=== PATIENT | female | born 1940 | race Caucasian/White ===

== ENCOUNTER → 2018-09-07 14:40 | Emergency (ER) | payer MEDICARE, BC ==
[~2018-09-07 14:40] MED LIST: Cefepime 2 GM in Dextrose(*) 2 GM/50 ML BAG IV ONE; Iodixanol* (CONTRAST) 320 MG/ML 100 ML SDV IV ONE; Morphine 4 MG/ML VIAL (1 ml) 4 MG/ML VIAL IV ONE; NS 0.9% 1000 ML** 1,000 ML IV.FLUID IV ONE; Ondansetron INJ* 2 MG/ML VIAL IV ONE
[2018-09-07 15:17] LABS: ABS Lymphocytes 0.6 10^3/ul (1.0-4.8); ABS Monocytes 0.3 10^3/ul (0-0.8); ABS Neutrophils 7.9 10^3/ul (1.5-7.7); Hematocrit 34 % (35-47); Hemoglobin 11.9 g/dL (12.0-16.0); Lymphocyte % 6.3 %; Mean Corpuscular HGB Conc 35 g/dL (31-36); Mean Corpuscular Hemoglobin 34 pg (27-31); Mean Corpuscular Volume 97 fL (80-97); Mean Platelet Volume 9.3 fL (7.4-10.4); Platelet Count 189 10^3/uL (150-450); Red Cell Distribution Width 13 % (10-15); White Blood Count 8.8 10^3/uL (3.5-10.8)
[2018-09-07 15:53] LABS: Activated Partial Thrombo Time 37.7 seconds (26.0-38.0); Albumin 3.9 g/dL (3.2-5.2); Albumin/Globulin Ratio 1.2 (1-3); BUN/Creatinine Ratio 15.7 (8-20); C Reactive Protein 1.03 mg/L (<8.01); Calcium 9.4 mg/dL (8.6-10.3); EGFR African American 44.1 (>60); EGFR Non-African American 36.5 (>60); Globulin 3.2 g/dL (2-4); INR 1.38 (0.82-1.09); Potassium 3.7 mmol/L (3.5-5.0); Total Bilirubin 0.6 mg/dL (0.2-1.0); Total Protein 7.1 g/dL (6.4-8.9)
--- NOTE | 2018-09-07 16:00 | ED ---
Abdominal Pain/Female - HPI Summary HPI Summary: The patient is a 78 y/o F arriving by ambulance to [facility] accompanied by daughter with a chief complaint of sudden onset abd pain this morning. She reports that she woke up with cramping across the abd that developed into a sharp, burning LUQ pain and is now constant after having a BM. She additionally c/o nausea without vomiting, dizziness, and lightheadedness. She denies any blood with stool, melena, fever, chills, erythema of eyes, sore throat, CP, SOB, cough, dysuria, hematuria, myalgia, edema, and rash. The nausea is worsened with standing up. Her pain is currently rated 5/10 in severity. No hx of kidney stones. PMHx: hernia, osteoarthritis. PCP is Dr. Suresh. - History of Current Complaint Chief Complaint: EDAbdPain Stated Complaint: ABDOMINAL/FLANK PAIN PER EMS Time Seen by Provider: 09/07/18 14:56 Hx Obtained From: Patient Onset/Duration: Sudden Onset, Lasting Hours - this morning, Still Present Timing: Hours Severity Initially: Mild Severity Currently: Moderate Pain Intensity: 5 Pain Scale Used: 0-10 Numeric Location: Discrete At: LUQ Radiates: No Character: Burning, Other: - sharp Aggravating Factor(s): Other: - standing Alleviating Factor(s): Position - sitting Associated Signs and Symptoms: Positive: Dizzy, Nausea, Other: - lightheadedness. Negative: Fever, Cough, Chest Pain, Blood in Stool - or melena , Urinary Symptoms - including hematuria or dysuria, Vomiting Allergies/Adverse Reactions: Allergies Allergy/AdvReac Type Severity Reaction Status Date / Time acetaminophen [From Vicodin] Allergy Unknown Verified 09/07/18 14:57 Reaction Details amoxicillin Allergy Unknown Verified 09/07/18 14:57 Reaction Details celecoxib [From Celebrex] Allergy Unknown Verified 09/07/18 14:57 Reaction Details codeine Allergy Unknown Verified 09/07/18 14:57 Reaction Details hydrocodone Allergy Unknown Verified 09/07/18 14:57 Reaction Details levofloxacin [From Levaquin] Allergy Unknown Verified 09/07/18 14:57 Reaction Details pantoprazole [From Protonix] Allergy Unknown Verified 09/07/18 14:57 Reaction Details Penicillins Allergy Unknown Verified 09/07/18 14:56 Reaction Details tramadol Allergy Unknown Verified 09/07/18 14:57 Reaction Details Home Medications: Home Medications Amiodarone HCl 200 mg PO DAILY 09/07/18 [History Confirmed 09/07/18] Apixaban* [Eliquis*] 5 mg PO BID 09/07/18 [History Confirmed 09/07/18] Aspirin [Sia Aspirin EC Low Dose 81 MG] 81 mg PO Q48HR 09/07/18 [History Confirmed 09/07/18] Atorvastatin* [Lipitor*] 10 mg PO DAILY 09/07/18 [History Confirmed 09/07/18] Lisinopril TAB* [Prinivil TAB*] 5 mg PO DAILY 09/07/18 [History Confirmed ] PMH/Surg Hx/FS Hx/Imm Hx Endocrine/Hematology History: Denies: Hx Diabetes Infectious Disease History: No Infectious Disease History: Denies: Traveled Outside the [place] in Last 30 Days - Social History Alcohol Use: None Substance Use Type: Reports: None Smoking Status (MU): Never Smoked Tobacco Review of Systems Negative: Fever, Chills Negative: Erythema Negative: Sore Throat Negative: Chest Pain Negative: Shortness Of Breath, Cough Positive: Abdominal Pain - cramping across but now localized at LUQ, Nausea, Other - NEGATIVE: melena, blood in stool. Negative: Vomiting, Diarrhea Negative: dysuria, hematuria Negative: Myalgia, Edema Negative: Rash Neurological: Other - dizziness, lightheadedness All Other Systems Reviewed And Are Negative: Yes Physical Exam - Summary Physical Exam Summary: Constitutional: Well-developed, Well-nourished, Alert. (-) Distressed Skin: Warm, Dry HENT: Normocephalic; Atraumatic Eyes: Conjunctiva normal Neck: Musculoskeletal ROM normal neck. (-) JVD, (-) Stridor, (-) Tracheal deviation Cardio: Rhythm regular, rate normal, Heart sounds normal; Intact distal pulses; The pedal pulses are 2+ and symmetric. Radial pulses are 2+ and symmetric. (-) Murmur Pulmonary/Chest wall: Effort normal. (-) Respiratory distress, (-) Wheezes, (-) Rales Abd: Soft, (+) epigastric and exquisite LUQ tenderness, (-) Distension, (-) Guarding, (-) Rebound Musculoskeletal: (-) Edema Lymph: (-) Cervical adenopathy Neuro: Alert, Oriented x3 Psych: Mood and affect Normal Triage Information Reviewed: Yes Vital Signs On Initial Exam: Initial Vitals Pulse Pulse Ox 60 99 09/07/18 14:44 09/07/18 14:44 Vital Signs Reviewed: Yes Diagnostics - Vital Signs Vital Signs Temp Pulse Resp BP Pulse Ox 09/07/18 15:21 61 183/65 99 09/07/18 15:01 60 100 09/07/18 14:54 99.3 F 59 17 186/78 100 09/07/18 14:51 59 99 09/07/18 14:44 60 99 - Laboratory Lab Results: Lab Results 09/07/18 09/07/18 09/07/18 Range/Units 15:09 15:09 15:09 WBC 8.8 (3.5-10.8) 10^3/uL RBC 3.50 L (3.70-4.87) 10^6 /uL Hgb 11.9 L (12.0-16.0) g/dL Hct 34 L (35-47) % MCV 97 (80-97) fL MCH 34 H (27-31) pg MCHC 35 (31-36) g/dL RDW 13 (10-15) % Plt Count 189 (150-450) 10^3/uL MPV 9.3 (7.4-10.4) fL Neut % (Auto) 89.7 % Lymph % (Auto) 6.3 % [place] % (Auto) 3.5 % Eos % (Auto) 0.0 % Baso % (Auto) 0.5 % Absolute Neuts (auto) 7.9 H (1.5-7.7) 10^3/ul Absolute Lymphs (auto) 0.6 L (1.0-4.8) 10^3/ul Absolute Monos (auto) 0.3 (0-0.8) 10^3/ul Absolute Eos (auto) 0.0 (0-0.6) 10^3/ul Absolute Basos (auto) 0.0 (0-0.2) 10^3/ul Absolute Nucleated RBC 0.0 10^3/ul Nucleated RBC % 0.0 INR (Anticoag Therapy) (0.82-1.09) APTT (26.0-38.0) seconds Sodium 139 (135-145) mmol/L Potassium 3.7 (3.5-5.0) mmol/L Chloride 106 (101-111) mmol/L Carbon Dioxide 25 (22-32) mmol/L Anion Gap 8 (2-11) mmol/L BUN 22 (6-24) mg/dL Creatinine 1.40 H (0.51-0.95) mg/dL Est GFR ( Amer) 44.1 (>60) Est GFR (Non-Af Amer) 36.5 (>60) BUN/Creatinine Ratio 15.7 (8-20) Glucose 112 H (70-100) mg/dL Lactic Acid 1.1 (0.5-2.0) mmol/L Calcium 9.4 (8.6-10.3) mg/dL Total Bilirubin 0.60 (0.2-1.0) mg/dL AST 22 (13-39) U/L ALT 14 (7-52) U/L Alkaline Phosphatase 85 (34-104) U/L C-Reactive Protein 1.03 (<8.01) mg/L Total Protein 7.1 (6.4-8.9) g/dL Albumin 3.9 (3.2-5.2) g/dL Globulin 3.2 (2-4) g/dL Albumin/Globulin Ratio 1.2 (1-3) Lipase 13 (11.0-82.0) U/L 09/07/18 Range/Units 15:09 WBC (3.5-10.8) 10^3/uL RBC (3.70-4.87) 10^6 /uL Hgb (12.0-16.0) g/dL Hct (35-47) % MCV (80-97) fL MCH (27-31) pg MCHC (31-36) g/dL RDW (10-15) % Plt Count (150-450) 10^3/uL MPV (7.4-10.4) fL Neut % (Auto) % Lymph % (Auto) % [place] % (Auto) % Eos % (Auto) % Baso % (Auto) % Absolute Neuts (auto) (1.5-7.7) 10^3/ul Absolute Lymphs (auto) (1.0-4.8) 10^3/ul Absolute Monos (auto) (0-0.8) 10^3/ul Absolute Eos (auto) (0-0.6) 10^3/ul Absolute Basos (auto) (0-0.2) 10^3/ul Absolute Nucleated RBC 10^3/ul Nucleated RBC % INR (Anticoag Therapy) 1.38 H (0.82-1.09) APTT 37.7 (26.0-38.0) seconds Sodium (135-145) mmol/L Potassium (3.5-5.0) mmol/L Chloride (101-111) mmol/L Carbon Dioxide (22-32) mmol/L Anion Gap (2-11) mmol/L BUN (6-24) mg/dL Creatinine (0.51-0.95) mg/dL Est GFR ( Amer) (>60) Est GFR (Non-Af Amer) (>60) BUN/Creatinine Ratio (8-20) Glucose (70-100) mg/dL Lactic Acid (0.5-2.0) mmol/L Calcium (8.6-10.3) mg/dL Total Bilirubin (0.2-1.0) mg/dL AST (13-39) U/L ALT (7-52) U/L Alkaline Phosphatase (34-104) U/L C-Reactive Protein (<8.01) mg/L Total Protein (6.4-8.9) g/dL Albumin (3.2-5.2) g/dL Globulin (2-4) g/dL Albumin/Globulin Ratio (1-3) Lipase (11.0-82.0) U/L Result Diagrams: 09/07/18 15:09 09/07/18 15:09 Lab Statement: Any lab studies that have been ordered have been reviewed, and results considered in the medical decision making process. - CT Abd/Pel CT CT Interpretation Completed By: Radiologist Summary of CT Findings: Impression: 1. Severe left-sided hydronephrosis with delayed excretion on the left kidney. There is no appreciable nephrolithiasis. There is ascites centered on the left kidney suggestive of forniceal rupture. 2. Atherosclerosis. 3. Extensive diverticulosis. ED physician has reviewed this radiology report. - EKG 1512 Cardiac Rate: Bradycardia - 58 bpm EKG Rhythm: Sinus Bradycardia Summary of EKG Findings: Sinus bradycardia at 58 bpm. No STEMI. Re-Evaluation - Re-Evaluation First Eval Re-Evaluation Time: 17:00 Comment: We discussed results and need for transfer. Abdominal Pain Fem Course/Dx - Course Course Of Treatment: Patient is a 78 y/o F arriving by ambulance to [facility] accompanied by daughter with a chief complaint of sudden onset cramping across the abd that developed into a sharp, burning LUQ pain that is now constant after having a BM. Additionally c/o nausea without vomiting, dizziness, and lightheadedness. No hx of renal calculi. Upon physical exam, the patient exhibits epigastric and exquisite LUQ tenderness. In the ED course, the patient was administered Zofran and Morphine 4mg IV for pain, and Cefapime. Blood work reveals RBCs of 3.50, Hgb of 11.9, Hct of 34, absolute neuts of 7.9, absolute lymphs of 0.6, INR of 1.38, creatinine of 1.40, and glucose of 112. UA reveals trace leukocyte esterase, 1+ WBCs, presence of squamous epithelial cells, and ascorbic acid. EKG at 1512 reveals sinus bradycardia at 58 bpm without any acute changes. Abdominopelvic CT with contrast Impression: 1. Severe left-sided hydronephrosis with delayed excretion on the left kidney. There is no appreciable nephrolithiasis. There is ascites centered on the left kidney suggestive of forniceal rupture. 2. Atherosclerosis. 3. Extensive diverticulosis. Since the urology and nephrology consultation that the patient needs is not available at [facility], the patient needs to be transferred. I spoke with [facility], and they do not have any beds available. The patient was accepted to [facility] to Dr. Fried, [facility] ED. Patient is agreeable with plan. She is diagnosed with renal rupture. 60 minutes CCT. No stone visualized ; complication of pyelo? Reqiures urology consult - Diagnoses Provider Diagnoses: Renal rupture - Provider Notifications Discussed Care Of Patient With: ROGER FRIED - [facility] ED Time Discussed With Above Provider: 19:45 Instructed by Provider To: Transfer - Dr. Fried accepts the patient for transfer. Reason For Transfer: Specialty or service not available at [facility]., Patient not appropriate for [facility]. - Critical Care Time Critical Care Time: 30-74 min - 60 minutes Discharge - Sign-Out/Discharge Documenting (check all that apply): Patient Departure - Patient is accepted for transfer to [facility] by Dr. Fried. Patient Received Moderate/Deep Sedation with Procedure: No - Discharge Plan Condition: Stable Disposition: TRANS HIGHER LVL OF CARE FAC Referrals: Davina Suresh MD [Primary Care Provider] - - Billing Disposition and Condition Condition: STABLE Disposition: Trans Higher Lvl of Care Fac - Attestation Statements Document Initiated by Scribe: Yes Documenting Scribe: Lucila Kennedy Provider For Whom Adonis is Documenting (Include Credential): Dr. Luciano Leonard MD Scribe Attestation: Lucila Belcher scribed for Dr. Luciano Leonard MD on 09/07/18 at 2047. Scribe Documentation Reviewed: Yes Provider Attestation: The documentation as recorded by the Lucila mcgraw accurately reflects the service I personally performed and the decisions made by me, Dr. Luciano Leonard MD Status of Scribe Document: Viewed
[2018-09-07 16:40] LABS: Urine Appearance Clear; Urine Bacteria Absent (Absent); Urine Bilirubin Negative (Negative); Urine Blood Negative (Negative); Urine Color Yellow; Urine Glucose Negative (Negative); Urine Ketones Negative (Negative); Urine Nitrite Negative (Negative); Urine Protein Negative (Negative); Urine Red Blood Cell Trace(0-2/hpf) (Absent); Urine Specific Gravity 1.016 (1.010-1.030); Urine Squamous Epithelial Cell Present (Absent); Urine Urobilinogen Negative (Negative); Urine White Blood Cell 1+(6-10/hpf) (Absent)
[2018-09-08 01:00] VITALS: BP 111/86
== END | disposition short-term general hospital (02) ==
LOC: ED 14:40
DX: S37.062A Major laceration of left kidney, initial encounter (principal); X58.XXXA Exposure to other specified factors, initial encounter; Y92.9 Unspecified place or not applicable; Z88.1 Allergy status to other antibiotic agents; Z88.5 Allergy status to narcotic agent; Z88.0 Allergy status to penicillin; Z88.8 Allergy status to other drugs, medicaments and biological substances; Z79.82 Long term (current) use of aspirin; Z79.01 Long term (current) use of anticoagulants; Z79.899 Other long term (current) drug therapy; I70.0 Atherosclerosis of aorta; K57.90 Diverticulosis of intestine, part unspecified, without perforation or abscess without bleeding
CPT/HCPCS: 36415; 74177; 80053; 81003; 81015; 83605; 83690; 85025; 85610; 85730; 86140; 87086; 93005; 96361; 96365; 96375; 99284; J0692; J2270; J2405; Q9967

== ENCOUNTER 2018-09-19 10:08 | Emergency (ER) | payer MEDICARE, BC ==
--- NOTE | 2018-09-19 10:30 | ED ---
Adult Trauma - HPI Summary HPI Summary: A 78 y/o female presents to [facility] with a chief complaint of a mechanical fall two times over the past three days. She said that she fell on her left arm three days ago and last night she fell on her right thigh. She claims that she hit her head both times but did not lose consciousness or have any head pain. She reports taking Eliquis. She denies and numbness/weakness/tingling. She says that she was in the ED on 09/07/18 with left flank pain and was sent to [facility] and a urologist, but claims that this is a different pain. She denies any current bowel or urinary symptoms. She also notes that 5 years ago had shoulder replacement shoulder. - History of Current Complaint Chief Complaint: EDFall Stated Complaint: LEFT ARM/HIP PAIN PER NURSE Hx Obtained From: Patient Mechanism of Injury: Fall Loss of Consciousness: no loss of consciousness Onset/Duration: Started Days Ago, Still Present Onset Severity: Moderate Current Severity: Moderate Pain Intensity: 7 Pain Scale Used: 0-10 Numeric Location: Extremities - right thigh, left arm Aggravating Factor(s): Nothing Alleviating Factor(s): Nothing Associated Signs & Symptoms: Positive: Other: - negative: urinary or bowel symptoms. Negative: Fever, Loss of Consciousness - Allergy/Home Medications Allergies/Adverse Reactions: Allergies Allergy/AdvReac Type Severity Reaction Status Date / Time amoxicillin Allergy Unknown Verified 09/07/18 14:57 Reaction Details celecoxib [From Celebrex] Allergy Unknown Verified 09/07/18 14:57 Reaction Details codeine Allergy Unknown Verified 09/07/18 14:57 Reaction Details diltiazem Allergy Rash Verified 09/19/18 10:14 hydrocodone Allergy Unknown Verified 09/07/18 14:57 Reaction Details levofloxacin [From Levaquin] Allergy Unknown Verified 09/07/18 14:57 Reaction Details pantoprazole [From Protonix] Allergy Unknown Verified 09/07/18 14:57 Reaction Details Penicillins Allergy Unknown Verified 09/07/18 14:56 Reaction Details tramadol Allergy Unknown Verified 09/07/18 14:57 Reaction Details PMH/Surg Hx/FS Hx/Imm Hx Endocrine/Hematology History: Denies: Hx Diabetes Infectious Disease History: No Infectious Disease History: Denies: Traveled Outside the [place] in Last 30 Days - Family History Known Family History: Negative: Blood Disorder - Social History Alcohol Use: None Substance Use Type: Reports: None Smoking Status (MU): Never Smoked Tobacco Review of Systems Negative: Fever Negative: Abdominal Pain, Vomiting, Diarrhea, Nausea Positive: no symptoms reported Positive: Myalgia - left arm pain, right thigh pain Negative: Syncope All Other Systems Reviewed And Are Negative: Yes Physical Exam - Summary Physical Exam Summary: Constitutional: Well-developed, Well-nourished, Alert, Cooperative Skin: Warm, Dry HENT: Normocephalic, atraumatic. Eyes: EOM normal, PERRL Neck: Trachea is midline. No stridor; No JVD; No step off; No posterior cervical spine tenderness Cardio: Rhythm regular, rate normal Heart sounds normal; Intact distal pulses; Radial pulses are 2+ and symmetric. Pulmonary/Chest wall: Effort normal; Breath sounds normal; Equal chest rise; No flail segment; No rib tenderness; No sternal tenderness Abd: Soft, Appearance normal. No distension; No tenderness Musculoskeletal: tenderness right lateral thigh w/o deformity. Tenderness left shoulder with pain with ROM of humerus, no elbow/hand/forearm tenderness. No joint swelling; No step off or deformity of the spine Neuro: Alert, Oriented x3, GCS 15. Strength 5/5 all extremities. Psych: Mood and affect Normal Triage Information Reviewed: Yes Vital Signs On Initial Exam: Initial Vitals Temp Pulse Resp BP Pulse Ox 98.6 F 60 14 173/83 99 09/19/18 10:10 09/19/18 10:10 09/19/18 10:10 09/19/18 10:10 09/19/18 10:10 Vital Signs Reviewed: Yes - Brumley Coma Scale Best Eye Response: 4 - Spontaneous Best Motor Response: 6 - Obeys Commands Best Verbal Response: 5 - Oriented Coma Scale Total: 15 Diagnostics - Vital Signs Vital Signs Temp Pulse Resp BP Pulse Ox 09/19/18 10:10 98.6 F 60 14 173/83 99 - Laboratory Result Diagrams: 09/19/18 10:34 09/19/18 10:34 Lab Statement: Any lab studies that have been ordered have been reviewed, and results considered in the medical decision making process. - Radiology Hip/pelvis x-ray Radiology Interpretation Completed By: Radiologist Summary of Radiographic Findings: 1. OSTEOPENIA. 2. OSTEOARTHRITIS. 3. NO RADIOGRAPHIC EVIDENCE FOR HIP FRACTURE. X-RAYS MAY BE NEGATIVE WITH NONDISPLACED. HIP FRACTURE, IF THERE IS PERSISTENT CLINICAL CONCERN, RECOMMEND CONSIDERATION OF MRI. IN. THE SETTING OF CONTRAINDICATION TO MRI OR LIMITATION IN EMERGENT ACCESS TO MRI, CT WOULD. BE SUGGESTED. ED physician has reviewed this imaging report. femur x-ray Radiology Interpretation Completed By: Radiologist Summary of Radiographic Findings: Negative for fracture. ED physician has reviewed this imaging report. CXR Radiology Interpretation Completed By: Radiologist Summary of Radiographic Findings: COPD. ED physician has reviewed this imaging report. humerus x-ray Radiology Interpretation Completed By: Radiologist Summary of Radiographic Findings: Normally located complete glenohumeral joint prosthesis. Negative for stigmata of. component loosening or periprosthetic fracture. No fracture of the humerus evident. Bone density appears decreased throughout. Unremarkable soft tissue contours. ED physician has reviewed this imaging reprot. shoulder x-ray Radiology Interpretation Completed By: Radiologist Summary of Radiographic Findings: Normally located complete glenohumeral joint prosthesis. Negative for stigmata of. component loosening or periprosthetic fracture. No fracture of the humerus evident. Bone density appears decreased throughout. Unremarkable soft tissue contours. ED physician has reviewed this imaging report. - CT Brain CT Interpretation Completed By: Radiologist Summary of CT Findings: 1. NO ACUTE INTRACRANIAL PATHOLOGY. 2. CHRONIC SMALL VESSEL ISCHEMIC CHANGE. 3. 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 ED physician has reviewed this imaging report. Re-Evaluation - Re-Evaluation First Eval Change: Improved - Discussed results including negative x-rays and negative head CT. Patient feels comfortable going home. Adult Trauma Course/Dx - Course Course Of Treatment: 78-year-old female with a history of recent L renal forniceal rupture, on eliquis presents after a ground level fall. - 2 mechanical falls, denies syncopal event that [facility]. Secondary survey with left shoulder tenderness at site of prior surgery, right hip tenderness. Check plain films. Check a CBC and INR. Denies LUQ/L flank pain. - Diagnoses Provider Diagnoses: Shoulder pain, Hip pain, Fall Discharge - Sign-Out/Discharge Documenting (check all that apply): Patient Departure - DC Patient Received Moderate/Deep Sedation with Procedure: No - Discharge Plan Condition: Stable Disposition: HOME Patient Education Materials: Fall Prevention (ED), Shoulder Pain (ED) Referrals: Davina Suresh MD [Primary Care Provider] - Additional Instructions: You were seen in the emergency department for a fall. Your Xrays did not show any acute fractures. At home you can take 500 mg of tylenol for pain every 6-8 hours. If any studies were not completed at the time of discharge you will be called with the relevant results. Please follow up with your primary care doctor in next 2-3 days and return to emergency department for worsening pain, continues falls, headaches, or concerning symptoms. - Billing Disposition and Condition Condition: STABLE Disposition: Home - Attestation Statements Document Initiated by Adonis: Yes Documenting Alirioibe: Castro Enamorado Provider For Whom Adonis is Documenting (Include Credential): Brian Mccarthy MD Scribe Attestation: Castro Belcher, scribed for Brian Mccatrhy MD on 09/19/18 at 1146. Scribe Documentation Reviewed: Yes Provider Attestation: The documentation as recorded by the Castro mcgraw accurately reflects the service I personally performed and the decisions made by Brian teran MD Status of Scribjamal Document: Viewed
[2018-09-19 10:47] LABS: ABS Basophils 0.1 10^3/ul (0-0.2); ABS Lymphocytes 0.7 10^3/ul (1.0-4.8); ABS Monocytes 0.3 10^3/ul (0-0.8); Eosinophil % 0.6 %; Hematocrit 32 % (35-47); Hemoglobin 10.9 g/dL (12.0-16.0); Lymphocyte % 16.2 %; Mean Corpuscular HGB Conc 34 g/dL (31-36); Mean Corpuscular Hemoglobin 33 pg (27-31); Mean Corpuscular Volume 98 fL (80-97); Mean Platelet Volume 8.4 fL (7.4-10.4); Nucleated Red Blood Cells % 0.1; Platelet Count 296 10^3/uL (150-450); Red Cell Distribution Width 13 % (10-15); White Blood Count 4.1 10^3/uL (3.5-10.8)
[2018-09-19 10:54] LABS: INR 1.59 (0.82-1.09)
[2018-09-19 11:00] LABS: Albumin/Globulin Ratio 1.1 (1-3); Calcium 9.6 mg/dL (8.6-10.3); EGFR African American 60.2 (>60); EGFR Non-African American 49.7 (>60); Globulin 3.5 g/dL (2-4); Potassium 3.8 mmol/L (3.5-5.0); Total Bilirubin 0.5 mg/dL (0.2-1.0); Total Protein 7.5 g/dL (6.4-8.9)
[2018-09-19] MEDS ORDERED: Acetaminophen TAB* 325 MG PO ONE (11:34)
[2018-09-19 11:43] VITALS: BP 178/83
== END 2018-09-19 11:44 | disposition home or self-care (01) ==
LOC: ED 10:08
DX: M25.512 Pain in left shoulder (principal); M25.551 Pain in right hip; W19.XXXA Unspecified fall, initial encounter; Y92.9 Unspecified place or not applicable; M85.88 Other specified disorders of bone density and structure, other site; M16.11 Unilateral primary osteoarthritis, right hip; J44.9 Chronic obstructive pulmonary disease, unspecified; Z79.01 Long term (current) use of anticoagulants; Z96.612 Presence of left artificial shoulder joint; Z88.1 Allergy status to other antibiotic agents; Z88.5 Allergy status to narcotic agent; Z88.0 Allergy status to penicillin; Z88.8 Allergy status to other drugs, medicaments and biological substances
CPT/HCPCS: 36415; 70450; 71046; 80053; 85025; 85610; 99282; A9270-GY

== ENCOUNTER 2020-11-16 12:27 | Inpatient (IN) ==
[2020-11-16] MEDS ORDERED: Morphine 4 MG/ML VIAL (1 ml) IV ONE ×2 (13:45→14:51)
[2020-11-16] MEDS ORDERED: Ondansetron 4 mg VIAL 2 MG/ML 2 ml VIAL IV ONE (13:45)
[2020-11-16 13:55] LABS: Hematocrit 34 % (35-47); Hemoglobin 11.5 g/dL (12.0-16.0); Mean Corpuscular HGB Conc 34 g/dL (31-36); Mean Corpuscular Hemoglobin 34 pg (27-31); Mean Corpuscular Volume 97 fL (80-97); Mean Platelet Volume 9.1 fL (7.4-10.4); Platelet Count 189 10^3/uL (150-450); Red Blood Count 3.45 10^6 /uL (3.70-4.87); Red Cell Distribution Width 13 % (10-15)
[2020-11-16] MEDS ORDERED: Lactated Ringers 1000 ml BAG 1,000 ML IV SCH (14:00)
[2020-11-16 14:08] LABS: Troponin I 0.01 ng/mL (<0.03)
[2020-11-16 14:09] LABS: Albumin 3.7 g/dL (3.2-5.2); Albumin/Globulin Ratio 1.1 (1-3); Calcium 9.6 mg/dL (8.6-10.3); Globulin 3.4 g/dL (2-4); Potassium 3.7 mmol/L (3.5-5.0); Total Bilirubin 0.5 mg/dL (0.2-1.0); Total Protein 7.1 g/dL (6.4-8.9)
[2020-11-16 14:44] LABS: ABS Lymphocytes 0.7 10^3/ul (1.0-4.8); ABS Monocytes 0.6 10^3/ul (0-0.8); ABS Neutrophils 10.6 10^3/ul (1.5-7.7); Eosinophil % 0.1 %; Lymphocyte % 5.9 %
[2020-11-16] MEDS ORDERED: Senna TAB 8.6 mg TAB PO PRN ×2 (15:29→17:19)
[2020-11-16] MEDS ORDERED: Famotidine IV 10 MG/ML 2 ml VIAL (20 mg) IV ONE (16:24)
[2020-11-16 16:42] LABS: Rapid COVID-19 Molecular Undetected (Undetected)
[2020-11-16] MEDS ORDERED: Famotidine IV 10 MG/ML 2 ml VIAL (20 mg) ONE (17:05)
[2020-11-16] MEDS ORDERED: ceFAZolin 2 GM in NS PREMIX 2 GM/100 ML BAG IVPB ONE (17:05)
[2020-11-16] MEDS: Lactated Ringers 1000 ml BAG 1,000 ML IV SCH ×2 (17:10→21:58)
[2020-11-16] MEDS ORDERED: Polyethylene Glycol 3350 17 GM PACKET PO PRN (17:19)
[2020-11-16] MEDS ORDERED: Magnesium Hydroxide LIQ 30 ML UDC PO PRN (17:19)
[2020-11-16] MEDS ORDERED: Rocuronium 50 mg VIAL 10 mg/ml 5 ml VIAL (50 mg) ONE (17:38)
[2020-11-16] MEDS ORDERED: fentaNYL 250 mcg/5 ml 50 MCG/ML 5 ml VIAL (250 MCG) ONE (17:38)
[2020-11-16] MEDS ORDERED: Propofol 10 MG/ML 20 ML BTL ONE (17:38)
[2020-11-16] MEDS ORDERED: Midazolam 2 mg/2 ml VIAL 1 mg/ml 2 ml VIAL (2 mg) ONE (17:42)
[2020-11-16] MEDS ORDERED: Lidocaine 2% PF 5 ML VIAL ONE (17:43)
[2020-11-16] MEDS ORDERED: Dexamethasone IV 4 MG/ML VIAL 1 ml VIAL ONE (18:19)
[2020-11-16] MEDS ORDERED: Naloxone 0.4 mg VIAL 0.4 mg/ml 1 ml VIAL IV PRN (19:20)
[2020-11-16] MEDS ORDERED: Acetaminophen IV 1 GM/100ML 100 ML IV ONE (19:20)
[2020-11-16] MEDS ORDERED: Ondansetron 4 mg VIAL 2 MG/ML 2 ml VIAL ONE (19:20)
[2020-11-16] MEDS ORDERED: DiMENhydriNATE IV 50 mg/ml 1 ml VIAL IV PUSH PRN (19:20)
[2020-11-16] MEDS ORDERED: Phenylephrine 40 mcg/mL 10mL (400mcg) SYRINGE ONE (19:22)
[2020-11-16] MEDS ORDERED: fentaNYL 100 mcg/2 ml 50 MCG/ML VIAL ONE ×2 (19:55→20:13)
[2020-11-16] MEDS: fentaNYL 100 mcg/2 ml 50 MCG/ML VIAL IV PRN ×5 (19:55→20:15)
[2020-11-16] MEDS ORDERED: PROPAFENONE 225 MG PO SCH (21:00)
[2020-11-16] MEDS: Magnesium Hydroxide LIQ 30 ML UDC PO SCH (22:03)
[2020-11-16 22:55] LABS: INR 1.16 (0.86-1.15)
[2020-11-17] MEDS: Ondansetron 4 mg VIAL 2 MG/ML 2 ml VIAL IV PRN ×2 (01:34→14:18)
[2020-11-17] MEDS: ceFAZolin 1 GM X 3 DOSES POST-OP Q8H (AddVan) IVPB SCH ×3 (01:34→17:21)
[2020-11-17] MEDS ORDERED: Calcium Carb (TUMS) 500 mg CHEW TAB PO PRN (02:29)
[2020-11-17 05:35] LABS: ABS Lymphocytes 0.5 10^3/ul (1.0-4.8); ABS Monocytes 0.3 10^3/ul (0-0.8); Hematocrit 29 % (35-47); Hemoglobin 10.1 g/dL (12.0-16.0); Lymphocyte % 5.6 %; Mean Corpuscular HGB Conc 35 g/dL (31-36); Mean Corpuscular Hemoglobin 34 pg (27-31); Mean Corpuscular Volume 97 fL (80-97); Mean Platelet Volume 8.9 fL (7.4-10.4); Platelet Count 163 10^3/uL (150-450); Red Blood Count 3.02 10^6 /uL (3.70-4.87); Red Cell Distribution Width 13 % (10-15); White Blood Count 8.8 10^3/uL (3.5-10.8)
[2020-11-17 05:51] LABS: Calcium 8.8 mg/dL (8.6-10.3); Potassium 4.3 mmol/L (3.5-5.0)
[2020-11-17] MEDS ORDERED: CMC:Ketorolac 0.5% OPHTH (NF) 0.5 % 5 ML BTL LEFT EYE SCH (09:00)
[2020-11-17] MEDS ORDERED: Ciprofloxacin 0.3% OPTH.SOL BTL LEFT EYE SCH (09:00)
[2020-11-17] MEDS ORDERED: Magnesium Hydroxide LIQ 30 ML UDC PO SCH (09:00)
[2020-11-17] MEDS ORDERED: NS 0.9% 1000 ml BAG 1,000 ML IV ONE (09:26)
[2020-11-17] MEDS: Calcium/Vitamin D TAB 250/125 TAB PO SCH (09:46)
[2020-11-17] MEDS: Magnesium Hydroxide LIQ 30 ML UDC PO SCH ×2 (09:46→21:22)
[2020-11-17] MEDS: CMCS:Propafenone ER 225 mg CAP (NF) 225 MG CAP.ER PO SCH ×2 (09:47→21:24)
[2020-11-17] MEDS: Multivitamins/Minerals TAB PO SCH (09:47)
[2020-11-17] MEDS: Enoxaparin 40 MG/0.4 ML SYR SUBCUT SCH (11:39)
[2020-11-17] MEDS ORDERED: CMCS:Ketorolac 0.5% OPHTH (NF) 0.5 % 5 ML BTL RIGHT EYE SCH (14:00)
[2020-11-17] MEDS: CMCS:Ketorolac 0.5% OPHTH (NF) 0.5 % 5 ML BTL RIGHT EYE SCH (21:22)
[2020-11-18 06:04] LABS: ABS Lymphocytes 0.8 10^3/ul (1.0-4.8); ABS Monocytes 0.6 10^3/ul (0-0.8); ABS Neutrophils 8.1 10^3/ul (1.5-7.7); Eosinophil % 0.1 %; Hematocrit 26 % (35-47); Hemoglobin 9.1 g/dL (12.0-16.0); Mean Corpuscular HGB Conc 35 g/dL (31-36); Mean Corpuscular Hemoglobin 34 pg (27-31); Mean Corpuscular Volume 97 fL (80-97); Mean Platelet Volume 8.8 fL (7.4-10.4); Platelet Count 152 10^3/uL (150-450); Red Blood Count 2.66 10^6 /uL (3.70-4.87); Red Cell Distribution Width 13 % (10-15); White Blood Count 9.5 10^3/uL (3.5-10.8)
[2020-11-18 06:30] LABS: Calcium 8.5 mg/dL (8.6-10.3); Potassium 4.4 mmol/L (3.5-5.0)
[2020-11-18] MEDS: CMCS:Propafenone ER 225 mg CAP (NF) 225 MG CAP.ER PO SCH ×2 (07:59→21:12)
[2020-11-18] MEDS: CMCS:Ketorolac 0.5% OPHTH (NF) 0.5 % 5 ML BTL RIGHT EYE SCH ×3 (07:59→19:30)
[2020-11-18] MEDS: Calcium/Vitamin D TAB 250/125 TAB PO SCH (08:00)
[2020-11-18] MEDS: Multivitamins/Minerals TAB PO SCH (08:01)
[2020-11-18] MEDS: Magnesium Hydroxide LIQ 30 ML UDC PO SCH (08:09)
[2020-11-18] MEDS: Enoxaparin 40 MG/0.4 ML SYR SUBCUT SCH (12:31)
[2020-11-19 04:57] LABS: Hematocrit 24 % (35-47); Hemoglobin 8.5 g/dL (12.0-16.0); Mean Platelet Volume 8.8 fL (7.4-10.4); Platelet Count 151 10^3/uL (150-450)
[2020-11-19 07:15] VITALS: BP 112/66
[2020-11-19] MEDS: CMCS:Ketorolac 0.5% OPHTH (NF) 0.5 % 5 ML BTL RIGHT EYE SCH (08:33)
[2020-11-19] MEDS: Calcium/Vitamin D TAB 250/125 TAB PO SCH (08:34)
[2020-11-19] MEDS: Multivitamins/Minerals TAB PO SCH (08:34)
[2020-11-19] MEDS: CMCS:Propafenone ER 225 mg CAP (NF) 225 MG CAP.ER PO SCH (08:37)
== END 2020-11-19 09:35 | DRG 481 ==
LOC: ED 12:27 → SUATTDRO 15:25 → SSU 15:25
PROVIDERS: ADMIT Internal Medicine; ATTEND Internal Medicine

== ENCOUNTER 2020-11-19 07:48 | Inpatient (IN) ==
[2020-11-19] MEDS ORDERED: Magnesium Hydroxide LIQ 30 ML UDC PO PRN (13:17)
[2020-11-19 14:19] LABS: ABS Eosinophils 0.1 10^3/ul (0-0.6); ABS Monocytes 0.9 10^3/ul (0-0.8); Hematocrit 26 % (35-47); Lymphocyte % 16.1 %; Mean Corpuscular HGB Conc 34 g/dL (31-36); Mean Corpuscular Hemoglobin 33 pg (27-31); Mean Corpuscular Volume 97 fL (80-97); Mean Platelet Volume 8.8 fL (7.4-10.4); Platelet Count 158 10^3/uL (150-450); Red Blood Count 2.72 10^6 /uL (3.70-4.87); Red Cell Distribution Width 13 % (10-15)
[2020-11-19] MEDS: Ketorolac 0.5% OPHTH (NF) 0.5 % 5 ML BTL RIGHT EYE SCH ×2 (14:37→20:23)
[2020-11-19] MEDS: Enoxaparin 40 MG/0.4 ML SYR SUBCUT SCH (14:37)
[2020-11-19] MEDS: PROPAFENONE 225 MG PO SCH (20:27)
[2020-11-19] MEDS ORDERED: Calcium Carb (TUMS) 500 mg CHEW TAB ONE (21:46)
[2020-11-20 07:25] LABS: Albumin 2.8 g/dL (3.2-5.2); Albumin/Globulin Ratio 1.1 (1-3); Calcium 8.4 mg/dL (8.6-10.3); Globulin 2.6 g/dL (2-4); Potassium 4.1 mmol/L (3.5-5.0); Total Bilirubin 0.7 mg/dL (0.2-1.0); Total Protein 5.4 g/dL (6.4-8.9)
[2020-11-20] MEDS: PROPAFENONE 225 MG PO SCH ×2 (08:23→20:16)
[2020-11-20] MEDS: Calcium/Vitamin D TAB 250/125 TAB PO SCH (08:23)
[2020-11-20] MEDS: Ketorolac 0.5% OPHTH (NF) 0.5 % 5 ML BTL RIGHT EYE SCH ×2 (09:14→13:46)
[2020-11-20] MEDS: Enoxaparin 40 MG/0.4 ML SYR SUBCUT SCH (14:19)
[2020-11-20] MEDS: Calcium Carb (TUMS) 500 mg CHEW TAB PO PRN (21:23)
[2020-11-21] MEDS: Calcium/Vitamin D TAB 250/125 TAB PO SCH (08:08)
[2020-11-21] MEDS: PROPAFENONE 225 MG PO SCH ×2 (08:08→21:38)
[2020-11-21] MEDS: Calcium Carb (TUMS) 500 mg CHEW TAB PO PRN (11:02)
[2020-11-21] MEDS: Enoxaparin 40 MG/0.4 ML SYR SUBCUT SCH (14:18)
[2020-11-22] MEDS: PROPAFENONE 225 MG PO SCH ×2 (07:42→19:54)
[2020-11-22] MEDS: Calcium/Vitamin D TAB 250/125 TAB PO SCH (07:42)
[2020-11-22] MEDS: Enoxaparin 40 MG/0.4 ML SYR SUBCUT SCH (14:05)
[2020-11-23] MEDS: Calcium/Vitamin D TAB 250/125 TAB PO SCH (08:22)
[2020-11-23] MEDS: PROPAFENONE 225 MG PO SCH ×2 (08:22→19:36)
[2020-11-23] MEDS: Enoxaparin 40 MG/0.4 ML SYR SUBCUT SCH (15:12)
[2020-11-23] MEDS: Calcium Carb (TUMS) 500 mg CHEW TAB PO PRN (15:23)
[2020-11-23] MEDS: Senna TAB 8.6 mg TAB PO PRN (19:37)
[2020-11-24] MEDS: Calcium/Vitamin D TAB 250/125 TAB PO SCH (09:09)
[2020-11-24] MEDS: PROPAFENONE 225 MG PO SCH ×2 (09:10→19:31)
[2020-11-24] MEDS: Calcium Carb (TUMS) 500 mg CHEW TAB PO PRN (13:30)
[2020-11-24] MEDS: Enoxaparin 40 MG/0.4 ML SYR SUBCUT SCH (13:30)
[2020-11-25] MEDS: Calcium/Vitamin D TAB 250/125 TAB PO SCH (08:52)
[2020-11-25] MEDS: PROPAFENONE 225 MG PO SCH ×2 (08:52→19:36)
[2020-11-25] MEDS: Enoxaparin 40 MG/0.4 ML SYR SUBCUT SCH (13:03)
[2020-11-26] MEDS: Calcium/Vitamin D TAB 250/125 TAB PO SCH (08:35)
[2020-11-26] MEDS: PROPAFENONE 225 MG PO SCH ×2 (08:36→19:49)
[2020-11-26 09:32] LABS: Mean Platelet Volume 7.7 fL (7.4-10.4); Platelet Count 299 10^3/uL (150-450)
[2020-11-26 14:31] LABS: ABS Basophils 0.1 10^3/ul (0-0.2); ABS Lymphocytes 1.1 10^3/ul (1.0-4.8); ABS Monocytes 0.5 10^3/ul (0-0.8); ABS Neutrophils 3.4 10^3/ul (1.5-7.7); Eosinophil % 0.6 %; Hematocrit 27 % (35-47); Hemoglobin 9.3 g/dL (12.0-16.0); Lymphocyte % 22.1 %; Mean Corpuscular HGB Conc 35 g/dL (31-36); Mean Corpuscular Hemoglobin 35 pg (27-31); Mean Corpuscular Volume 98 fL (80-97); Mean Platelet Volume 7.8 fL (7.4-10.4); Nucleated Red Blood Cells % 0.1; Platelet Count 301 10^3/uL (150-450); Red Blood Count 2.69 10^6 /uL (3.70-4.87); Red Cell Distribution Width 14 % (10-15); White Blood Count 5.2 10^3/uL (3.5-10.8)
[2020-11-26] MEDS: Enoxaparin 40 MG/0.4 ML SYR SUBCUT SCH (14:41)
[2020-11-27 08:21] LABS: Albumin 3.6 g/dL (3.2-5.2); Albumin/Globulin Ratio 1.2 (1-3); Calcium 9.1 mg/dL (8.6-10.3); Potassium 3.6 mmol/L (3.5-5.0); Total Bilirubin 0.8 mg/dL (0.2-1.0); Total Protein 6.6 g/dL (6.4-8.9)
[2020-11-27] MEDS: PROPAFENONE 225 MG PO SCH ×2 (09:13→21:11)
[2020-11-27] MEDS: Calcium/Vitamin D TAB 250/125 TAB PO SCH (09:13)
[2020-11-27] MEDS: Enoxaparin 40 MG/0.4 ML SYR SUBCUT SCH (13:40)
[2020-11-27] MEDS: Calcium Carb (TUMS) 500 mg CHEW TAB PO PRN (19:11)
[2020-11-28] MEDS: PROPAFENONE 225 MG PO SCH ×2 (07:47→21:09)
[2020-11-28] MEDS: Calcium/Vitamin D TAB 250/125 TAB PO SCH (07:48)
[2020-11-28] MEDS: Enoxaparin 40 MG/0.4 ML SYR SUBCUT SCH (14:20)
[2020-11-28] MEDS: Senna TAB 8.6 mg TAB PO PRN (21:06)
[2020-11-29] MEDS: PROPAFENONE 225 MG PO SCH ×2 (09:00→20:20)
[2020-11-29] MEDS: Calcium/Vitamin D TAB 250/125 TAB PO SCH (09:00)
[2020-11-29] MEDS: Enoxaparin 40 MG/0.4 ML SYR SUBCUT SCH (14:11)
[2020-11-30] MEDS: Calcium/Vitamin D TAB 250/125 TAB PO SCH (09:51)
[2020-11-30] MEDS: PROPAFENONE 225 MG PO SCH ×2 (09:51→21:02)
[2020-11-30] MEDS: Enoxaparin 40 MG/0.4 ML SYR SUBCUT SCH (14:41)
[2020-12-01] MEDS: Calcium/Vitamin D TAB 250/125 TAB PO SCH (08:17)
[2020-12-01] MEDS: PROPAFENONE 225 MG PO SCH ×2 (08:17→21:04)
[2020-12-01] MEDS: Enoxaparin 40 MG/0.4 ML SYR SUBCUT SCH (13:24)
[2020-12-02] MEDS: Calcium/Vitamin D TAB 250/125 TAB PO SCH (10:24)
[2020-12-02] MEDS: PROPAFENONE 225 MG PO SCH ×2 (10:26→20:07)
[2020-12-02] MEDS: Enoxaparin 40 MG/0.4 ML SYR SUBCUT SCH (14:42)
[2020-12-02 14:45] LABS: Rapid COVID-19 Molecular Undetected (Undetected)
[2020-12-03 06:35] VITALS: BP 121/49
[2020-12-03] MEDS: PROPAFENONE 225 MG PO SCH (08:45)
[2020-12-03] MEDS: Calcium/Vitamin D TAB 250/125 TAB PO SCH (08:45)
== END 2020-12-03 14:34 | DRG 561 ==
LOC: PMRU 10:01
PROVIDERS: ADMIT Physical Medicine & Rehabilitation; ATTEND Physical Medicine & Rehabilitation